=== PATIENT | female | born 1955 | race African-American/Black ===

== ENCOUNTER 2016-06-02 09:33 | Day surgery (SDC) | payer OTHER ==
[2016-05-27 10:39] VITALS: BMI 42.6
[~2016-06-02 09:33] MED LIST: BUPIVACAINE HCL/PF 0.5% (5MG/ML) 10 ML VIAL IJ ONE
[2016-06-02] MEDS ORDERED: BUPIVACAINE HCL/PF 0.5% (5MG/ML) 10 ML VIAL ONE (10:03)
[2016-06-02 10:24] LABS: URINE APPEARANCE CLEAR; URINE BILIRUBIN NEGATIVE (NEGATIVE); URINE BLOOD NEGATIVE (NEGATIVE); URINE COLOR LTYELLOW; URINE GLUCOSE (UA) NEGATIVE (NEGATIVE); URINE KETONE NEGATIVE (NEGATIVE); URINE LEUK ESTERASE NEGATIVE (NEGATIVE); URINE NITRITE NEGATIVE (NEGATIVE); URINE PROTEIN NEGATIVE (NEGATIVE); URINE UROBILINOGEN NEGATIVE E.U./dl (0.2-1.0)
--- NOTE | 2016-06-02 11:53 | HP ---
[facility]ellite [facility] - Chief Complaint Chief Complaint: right knee pain - Past Medical History Allergies/Adverse Reactions: Allergies Allergy/AdvReac Type Severity Reaction Status Date / Time No Known Drug Allergies Allergy Verified 06/02/16 10:17 - Current Medications Current Medications: Medication Instructions Recorded Meloxicam [Mobic] 15 mg PO DAILY 01/12/16 Hydrocodone/Acetaminophen 1 each PO Q6H #40 tablet MDD 4 06/02/16 [Hydrocodon-Acetaminoph 7.5-325] Satellite Physical Exam - Physical Examination Vital Signs: Vital Signs Period Temp Pulse Resp BP Sys/De Leon Pulse Ox Last 24 Hr 98.2 F 76 20 137/86 97 General Appearance: Well Nourished, Well Developed, Alert & Oriented x3 ENT: Clear Lung: Normal air movement Heart: Regular rate & rhythm Extremities: Other (right knee- + swelling, + ttp medially, decr rom, + mcmurrays, +apleys, nvi MRI + mt) Neurological: Intact, Alert, Oriented Satellite Impression/Plan - Impression/Plan Impression: right knee internal derangement Operative Procedure: right knee arthroscopy Date to be Performed: 06/02/16
[2016-06-02] MEDS ORDERED: DESFLURANE GAS 240 ML BOTTLE IH ONE (12:00)
[2016-06-02] MEDS ORDERED: ePHEDrine SULFATE 50 MG/1 ML AMPULE ONE (12:04)
[2016-06-02] MEDS ORDERED: LIDOCAINE HCL/PF 2% SDV 5ML VIAL ONE (12:04)
[2016-06-02] MEDS ORDERED: ceFAZolin SODIUM 1 GM VIAL ONE (12:04)
[2016-06-02] MEDS ORDERED: PHENYLEPHRINE HCL 10 MG/1 ML SINGLE DOSE VIAL ONE (12:04)
[2016-06-02] MEDS ORDERED: SODIUM CHLORIDE 0.9% P/F 10 ML VIAL IJ ONE ×2 (12:05→12:09)
[2016-06-02] MEDS ORDERED: PROPOFOL 20 ML ONE ×2 (12:05)
[2016-06-02] MEDS ORDERED: MIDAZOLAM HCL 2 MG/2 ML SINGLE DOSE VIAL ONE (12:05)
[2016-06-02] MEDS ORDERED: DEXAMETHASONE SOD PHOSPHATE 4 MG/1 ML VIAL ONE (12:07)
[2016-06-02] MEDS ORDERED: SUCCINYLCHOLINE CHLORIDE 200 MG/10 ML VIAL ONE (12:13)
[2016-06-02] MEDS ORDERED: ceFAZolin SODIUM 1 GM VIAL IVPB ONE (12:32)
[2016-06-02] MEDS ORDERED: KETOROLAC TROMETHAMINE 30 MG/1 ML VIAL ONE (12:40)
[2016-06-02] MEDS ORDERED: BUPIVACAINE HCL/PF 0.5% (5MG/ML) 10 ML VIAL IJ ONE (13:01)
--- NOTE | 2016-06-02 13:11 | OP ---
Operative Note - Note: Operative Date: 06/02/16 Pre-Operative Diagnosis: right knee medial meniscus tear, OA Operation: right knee arthroscopy, partial medial meniscectomy, debridement chondroplasty Findings: OA medial compartment Surgeon: Perez Walters Anesthesiologist/CATERPILLAR TRACTOR OPERATOR: Manolo Martines Anesthesia: General, Local Specimens Removed: shavings Estimated Blood Loss (mls): 25 Blood Volume Replaced (mls): 0 Fluid Volume Replaced (mls): 500 Operative Report Dictated: Yes
[2016-06-02] MEDS ORDERED: ONDANSETRON 4 MG/2 ML VIAL IVPUSH PRN (13:49)
[2016-06-02] MEDS ORDERED: oxyCODONE HCL 5 MG TABLET PO PRN (13:49)
[2016-06-02] MEDS ORDERED: LACTATED RINGERS SOLUTION 1,000 ML IV SCH (14:00)
--- NOTE | 2016-06-02 14:45 | OP ---
DATE OF OPERATION: 06/02/2016 PREOPERATIVE DIAGNOSIS: Right knee medial meniscus tear and osteoarthritis. POSTOPERATIVE DIAGNOSIS: Right knee medial meniscus tear and osteoarthritis. PROCEDURE: Right knee arthroscopy, partial medial meniscectomy, and debridement chondroplasty. SURGEON: Darwin Elizalde MD ASSISTANTS: None. ANESTHESIOLOGIST: Manolo Martines MD ANESTHESIA: LMA anesthesia with local injection 20 mL 0.5% Marcaine. DRAINS: None. COMPLICATIONS: None. SPECIMENS: None. BLOOD LOSS: Minimal. BLOOD GIVEN: None. FLUID REPLACEMENT: 500 mL. INDICATIONS: This patient is a 61-year-old female with a preoperative diagnosis of right knee pain, right knee medial meniscus tear, and osteoarthritis. After understanding the potential risks, complications, alternatives, and benefits of surgery versus nonsurgical treatment, the patient elected to undergo this procedure. DESCRIPTION OF PROCEDURE: The patient was brought into the operating room, peripheral IV placed and intravenous sedation given, LMA anesthesia was induced. 1 g of IV Ancef was given, and Webril was placed around the right thigh. Tourniquet was applied. She was placed in the C-clamp leg-more with a Styrofoam ring. The right lower extremity was prepped and draped in sterile fashion, elevated, exsanguinated with an Esmarch bandage, and tourniquet inflated to 295 mmHg. A superomedial outflow portal was established, a lateral portal was established. Arthroscope was introduced into the joint, and a medial portal was established. Under direct visualization, a diagnostic arthroscopy was performed. The patient was seen to have a complex tear of the posterior horn of the medial meniscus as well as grade 3 osteoarthritis of the medial compartment. A gentle debridement with chondroplasty was performed, and a medial meniscectomy was performed. Photographs were taken before and after. Next, out attention turned to the intercondylar notch. It looked good. The ACL looked good, had the appropriate tension. The lateral compartment looked good. There was no lateral meniscus tear and there was no lateral compartment osteoarthritis. Next, our attention turned to the patellofemoral joint. There was some synovitis, which I removed, but overall, the patellofemoral joint looked good. Therefore, if the patient did need a knee replacement, I think at the moment, she would be an excellent candidate for a medial MAKOplasty. The area was copiously irrigated and washed out. All excess saline removed. The arthroscopic portals were closed with 3-0 nylon sutures. The area was then washed and dried, covered with Xeroform. Then, 20 mL of 0.5% Marcaine were introduced into the joint. It was then covered with 4x4 gauze, Webril, and a 6-inch Francois bandage. The tourniquet was taken down after a total tourniquet time of about 18 minutes There were no complications during the case. The patient tolerated the procedure well and was brought to the ambulatory recovery room in stable condition. DARWIN ELIZALDE M.D. [id number]
[2016-06-02 15:00] VITALS: TEMP 97.9
[2016-06-02 16:56] VITALS: BP 140/70; PULSE 68
--- NOTE | 2016-06-04 15:41 | PATH ---
Surgical Pathology Report Patient Name: CHRIS MARTINEZ [facility]. Rec. #: [id number] /Age/Gender: 1955 (Age: 61) / F Account: [id number] Location: [facility] SUR[facility] Taken: 06/02/2016 Received: 06/03/2016 Reported: 06/04/2016 Physicians: Perez Walters M.D. Specimen(s) Received SHAVINGS RIGHT KNEE Clinical History Right knee torn meniscus Final Diagnosis SOFT TISSUE, RIGHT KNEE, ARTHROSCOPIC SHAVINGS: SYNOVIUM WITH MILD FIBROSIS; FIBROCARTILAGE WITH MYXOHYALINE DEGENERATION. Electronically Signed Travis Menezes M.D. Gross Description Received in formalin, labeled "right knee shavings" is a 4.0 x 2.5 x 0.3 cm. aggregate of cuellar-yellow soft tissue fragments. A livestock sales representative portion is submitted in one cassette. /06/03/201606/03/2016
== END 2016-06-02 16:56 | disposition home or self-care (01) ==
LOC: JASU-SURG 09:33
PROVIDERS: ATTEND Orthopaedic Surgery
PROC: 0SBC4ZZ Excision of Right Knee Joint, Percutaneous Endoscopic Approach (ICD-10-PCS; principal; 2016-06-02 11:00)
DX: M23.203 Derangement of unspecified medial meniscus due to old tear or injury, right knee (principal); M17.9 Osteoarthritis of knee, unspecified
CPT/HCPCS: 81003; 88304-TC; 94760; 97116-GP